=== PATIENT | male | born 1990 | race Caucasian/White ===

== ENCOUNTER 2022-03-16 11:06 | Emergency (ER) | payer OTHER, SELFPAY ==
[2022-03-16 11:44] VITALS: BP 140/79; PULSE 82; RESP 16; TEMP 36.2; O2SAT 98; BMI 33.2
--- NOTE | 2022-03-16 11:52 | DI.RAD.S_ITS ---
PROCEDURE: XR CHEST 2V INDICATIONS: sob TECHNIQUE: 2 views of the chest were acquired. COMPARISON: None. FINDINGS: Surgical changes and devices: None. Lungs and pleura: Lungs are clear. No pleural effusions or pneumothorax. Mediastinum: Mediastinal contours are normal. Heart size is normal. Bones and chest wall: No suspicious bony abnormalities. Soft tissues appear unremarkable. IMPRESSION: No acute pulmonary process. Dictated by: Marcia Borges M.D. on 03/16/2022 at 12:24 Approved by: Marcia Borges M.D. on 03/16/2022 at 12:24
--- NOTE | 2022-03-16 11:53 | DI.RAD.S_ITS ---
PROCEDURE: XR LUMBAR SPINE 2-3V INDICATIONS: pain injury TECHNIQUE: 3 views of the lumbar spine were acquired. COMPARISON: None. FINDINGS: Bones: 5 [id number] vertebrae are present. There is trace retrolisthesis of L5 on S1. Moderate to severe disc and foraminal narrowing are noted at L5-S1. No vertebral body compression fractures. No suspicious bony lesions. Soft tissues: Overlying bowel gas pattern is normal. No suspicious soft tissue calcifications. IMPRESSION: Disc and foraminal narrowing is noted most prominently at L5-S1. Dictated by: Marcia Borges M.D. on 03/16/2022 at 12:25 Approved by: Marcia Borges M.D. on 03/16/2022 at 12:25
--- NOTE | 2022-03-16 11:53 | DI.US.S_ITS ---
PROCEDURE: US SCROTUM INDICATIONS: left swelling pain TECHNIQUE: Real-time scanning was performed of the scrotum and testicles, with image documentation. Color and pulse Doppler interrogation was performed of both testicles. COMPARISON: None. FINDINGS: Right: Testicle is normal in size at 4.7 x 2.3 x 2.8 cm, and homogenous in echotexture. Epididymis is normal in overall size and morphology. No hydrocele or varicoceles. Overlying scrotal skin is normal in thickness. Left: Testicle is normal in size at 4.4 x 2.4 x 3.1 cm, and homogeneous in echotexture. Epididymis demonstrates a small focus of decreased echogenicity measuring 2 x 2 x 3 mm. No hydrocele or varicoceles. Overlying scrotal skin is normal in thickness. Doppler: Color and pulse Doppler demonstrate normal and symmetric arterial flow in both testicles. IMPRESSION: No evidence of torsion at time of exam. Intermittent torsion cannot be excluded. Small left epididymal cyst. Dictated by: Marcia Borges M.D. on 03/16/2022 at 12:42 Approved by: Marcia Borges M.D. on 03/16/2022 at 12:44
--- NOTE | 2022-03-16 13:36 | ED_ITS ---
HPI - Back Pain/Injury <Marycruz Shukla PA-C - Last Filed: 03/16/22 16:03> General Chief Complaint: Back Pain/Injury Stated Complaint: Hurt back lifting weights tuesday- getting worse Time Seen by Provider: 03/16/22 12:56 History of Present Illness HPI Narrative: 31-year-old male with no reported past medical history presents to the ED with 5 days of lower back pain. Patient states that his pain started 5 days ago after doing a session of weightlifting. States that his symptoms felt better after resting it for the next 2 days. However, yesterday he had some physical testing at work ([employer]) when he bent forward and felt like he tweaked his lower back again. Patient endorses bilateral lower back pain. Patient also endorses some numbness in his left testicle, numbness in the left hamstring. He notes that this numbness comes and goes. Patient denies any urinary hesitancy urinary incontinence bowel incontinence. Patient denies tingling, weakness. Related Data Allergies Allergy/AdvReac Type Severity Reaction Status Date / Time Penicillins Allergy Verified 03/16/22 11:54 Sulfa (Sulfonamide Allergy Verified 03/16/22 11:54 Antibiotics) Review of Systems <Marycruz Shukla PA-C - Last Filed: 03/16/22 16:03> Review of Systems ROS Unobtainable: All systems reviewed & are unremarkable except as noted in HPI and below Constitutional Constitutional: Denies chills, Denies fatigue, Denies fever(s), Denies frequent falls, Denies lethargy and Denies weakness Eyes Eyes: Denies change in vision, Denies eye discharge, Denies irritation and Denies loss of vision ENT Ears, Nose, Mouth, and Throat: Denies change in voice, Denies dizziness, Denies neck pain, Denies sore throat and Denies throat swelling Cardiovascular Cardiovascular: Denies chest pain, Denies irregular heart rhythm, Denies lightheadedness, Denies palpitations, Denies dyspnea, Denies dyspnea on exertion and Denies orthopnea Respiratory Respiratory: Denies cough, Denies dyspnea, Denies dyspnea on exertion and Denies wheezing Gastrointestinal Gastrointestinal: Denies abdominal pain, Denies change in bowel habits, Denies diarrhea, Denies nausea and Denies vomiting Genitourinary Genitourinary: Denies hematuria, Denies flank pain, Denies urinary incontinence and Denies urinary urgency Musculoskeletal Musculoskeletal: Reports back pain, Denies muscle weakness, Denies neck pain, Reports numbness and Denies tingling Comments: Left testicular numbness, left hamstring numbness, lower back pain Integumentary/Breasts Skin/Breast: Denies pruritus, Denies erythema, Denies rash and Denies wounds Neurologic Neurologic: Denies behavioral changes, Denies confusion, Denies dizziness, Denies frequent falls, Denies loss of vision, Reports numbness, Denies tingling and Denies weakness Psychiatric Psychiatric: Denies anxiety, Denies behavioral changes, Denies confusion, Denies depression, Denies homicidal ideation and Denies suicidal ideation Endocrine Endocrine: Denies fatigue, Denies flushing and Denies palpitations Hematologic/Lymphatic Hematologic/Lymphatic: Denies easy bruising Allergic/Immunologic Allergic/Immunologic: Denies urticaria, Denies throat swelling and Denies wheezing Exam <Marycruz Shukla PA-C - Last Filed: 03/16/22 16:03> Narrative Exam Narrative: Const General:?cooperative, healthy appearing and comfortable [facility] Head:?normal to inspection Ears:?hearing grossly normal bilaterally Nose:?external nose normal Face and sinus:?normal facial exam and sinuses nontender Mouth:?oral mucosae normal Throat:?posterior oropharynx normal Eyes General:?appearance normal, both eyes and all related structures Neck Neck:?normal visual inspection and no lymphadenopathy noted Resp Effort & Inspection:?normal respiratory effort Auscultation:?clear to auscultation bilaterally Cardio Rate:?regular rate Rhythm:?regular rhythm Musculoskeletal Strength and sensation intact. Full range of motion. Patient is neurovascularly intact. Neuro General:?patient alert, patient awake and patient oriented x3 Initial Vital Signs Initial Vital Signs: Vital Signs Temperature 97.1 F L 03/16/22 11:44 Pulse Rate 82 03/16/22 11:44 Respiratory Rate 16 03/16/22 11:44 Blood Pressure 140/79 03/16/22 11:44 Pulse Oximetry 98 03/16/22 11:44 Oxygen Delivery Method 03/16/22 11:44 <Viv Garcia DO - Last Filed: 03/16/22 19:35> Initial Vital Signs Initial Vital Signs: Vital Signs Temperature 97.1 F L 03/16/22 11:44 Pulse Rate 82 03/16/22 11:44 Respiratory Rate 16 03/16/22 11:44 Blood Pressure 140/79 03/16/22 11:44 Pulse Oximetry 98 03/16/22 11:44 Oxygen Delivery Method 03/16/22 11:44 Course <Marycruz Shukla PA-C - Last Filed: 03/16/22 16:03> Orders Ordered: ED Orders 03/16/22 11:52 Chest [XR chest 2V] Stat 03/16/22 11:53 US scrotum Stat XR lumbar spine 2-3V Stat 03/16/22 13:54 MR lumbar spine wo con Stat Discontinued Medications Cyclobenzaprine HCl (Cyclobenzaprine 10 Mg Tablet) 10 mg PO NOW ONE Stop: 03/16/22 13:54 Last Admin: 03/16/22 14:00 Dose: 10 mg Documented By: VALERIA Ketorolac Tromethamine (Ketorolac 30 Mg/Ml Vial) 30 mg IM NOW ONE Stop: 03/16/22 13:54 Last Admin: 03/16/22 14:00 Dose: 30 mg Documented By: VALERIA Vital Signs Vital signs: Vital Signs - 8 hr 03/16/22 11:44 03/16/22 16:06 Temperature 97.1 F L Pulse Rate 82 66 Respiratory Rate 16 16 Blood Pressure 140/79 136/82 Pulse Oximetry 98 99 Oxygen Delivery Method Room Air Room Air <Viv Garcia DO - Last Filed: 03/16/22 19:35> Orders Ordered: ED Orders 03/16/22 11:52 Chest [XR chest 2V] Stat 03/16/22 11:53 US scrotum Stat XR lumbar spine 2-3V Stat 03/16/22 13:54 MR lumbar spine wo con Stat Discontinued Medications Cyclobenzaprine HCl (Cyclobenzaprine 10 Mg Tablet) 10 mg PO NOW ONE Stop: 03/16/22 13:54 Last Admin: 03/16/22 14:00 Dose: 10 mg Documented By: VALERIA Ketorolac Tromethamine (Ketorolac 30 Mg/Ml Vial) 30 mg IM NOW ONE Stop: 03/16/22 13:54 Last Admin: 03/16/22 14:00 Dose: 30 mg Documented By: VALERIA Vital Signs Vital signs: Vital Signs - 8 hr 03/16/22 11:44 03/16/22 16:06 Temperature 97.1 F L Pulse Rate 82 66 Respiratory Rate 16 16 Blood Pressure 140/79 136/82 Pulse Oximetry 98 99 Oxygen Delivery Method Room Air Room Air MDM - Back Pain/Injury <Marycruz Shukla PA-C - Last Filed: 03/16/22 16:03> Imaging Data Scrotal ultrasound: Radiologist's Impression: PROCEDURE:? US SCROTUM ? INDICATIONS:? left swelling pain ? TECHNIQUE:? Real-time scanning was performed of the scrotum and testicles, with image documentation.? Color and pulse Doppler interrogation was performed of both testicles.? ? COMPARISON:? None. ? FINDINGS:? ? Right:? Testicle is normal in size at 4.7 x 2.3 x 2.8 cm, and homogenous in echotexture.? Epididymis is normal in overall size and morphology.? No hydrocele or varicoceles.? Overlying scrotal skin is normal in thickness.? ? Left:? Testicle is normal in size at 4.4 x 2.4 x 3.1 cm, and homogeneous in echotexture.? Epididymis demonstrates a small focus of decreased echogenicity measuring 2 x 2 x 3 mm.? No hydrocele or varicoceles.? Overlying scrotal skin is normal in thickness.? ? Doppler:? Color and pulse Doppler demonstrate normal and symmetric arterial flow in both testicles.? ? IMPRESSION:? ? No evidence of torsion at time of exam.? Intermittent torsion cannot be excluded. ? Small left epididymal cyst. ? ? Dictated by: Marcia Borges M.D. on 03/16/2022 at 12::42 ? ? Approved by: Marcia Borges M.D. on 03/16/2022 at 12:44? X-ray lumbar spine: Radiologist's Impression: PROCEDURE:? XR LUMBAR SPINE 2-3V ? INDICATIONS:? pain injury ? TECHNIQUE:? 3 views of the lumbar spine were acquired.? ? COMPARISON:? None. ? FINDINGS:? ? Bones:? 5 [id number] vertebrae are present.? There is trace retrolisthesis of L5 on S1.? Moderate to severe disc and foraminal narrowing are noted at L5-S1.? No vertebral body compression fractures.? No suspicious bony lesions.? ? Soft tissues:? Overlying bowel gas pattern is normal.? No suspicious soft tissue calcifications.? ? ? IMPRESSION:? Disc and foraminal narrowing is noted most prominently at L5-S1. ? ? Dictated by: Marcia Borges M.D. on 03/16/2022 at 12:25 ? ? Approved by: Marcia Borges M.D. on 03/16/2022 at 12:25 ? Chest x-ray: Radiologist's Impression: PROCEDURE:? XR CHEST 2V ? INDICATIONS:? sob ? TECHNIQUE:? 2 views of the chest were acquired.? ? COMPARISON:? None. ? FINDINGS:? ? Surgical changes and devices:? None.? ? Lungs and pleura:? Lungs are clear.? No pleural effusions or pneumothorax.? ? Mediastinum:? Mediastinal contours are normal.? Heart size is normal.? ? Bones and chest wall:? No suspicious bony abnormalities.? Soft tissues appear unremarkable.? ? IMPRESSION:? No acute pulmonary process. ? ? Dictated by: Marcia Borges M.D. on 03/16/2022 at 12:24 ? ? Approved by: Marcia Borges M.D. on 03/16/2022 at 12:24 ? MR lumbar spine: Radiologist's Impression: PROCEDURE:? MR LUMBAR SPINE WO CON ? INDICATIONS:? Low back px, L testicular ? hamstring numbness ? TECHNIQUE:? Noncontrast sagittal T1 spin echo and T2 fast echo, sagittal STIR, and T2 fast spin echo through the lumbar spine.? In cases with scoliosis, additional coronal T2 fast spin echo may be performed.? ? COMPARISON:? None. ? FINDINGS:? Image quality:? Excellent.? ? Alignment and Curvature:? Normal lumbar vertebral body height and alignment. ? Bone Marrow:? No suspicious focal marrow signal abnormality or bone marrow edema. ? Spinal Cord:? Conus medullaris terminates at the L1 level.? Visualized cord demonstrates normal signal and size.? ? Regional Soft Tissues:? Prevertebral and paraspinous soft tissues are normal. ? T12-L1:? Normal appearance.? ? L1-L2:? Normal appearance.? ? L2-L3:? Normal appearance.? ? L3-L4:? Normal appearance.? ? L4-L5:? Shallow diffuse disc bulge.? Small central disc protrusion.? No mass effect upon the descending L5 nerve roots.? No neural foraminal narrowing. ? L5-S1:? Shallow diffuse disc bulge without mass effect on the descending S1 nerve roots.? No neural foraminal stenosis. ? ? IMPRESSION:? Minimal lower lumbar spine degenerative changes with no evidence of focal nerve root impingement, spinal canal stenosis, or neural foraminal narrowing.? ? Dictated by: Eliecer Curtis M.D. on 03/16/2022 at 15:48 ? ? Approved by: Eliecer Curtis M.D. on 03/16/2022 at 15:50 ? MDM Narrative Medical decision making narrative: 31-year-old male with no reported past medical history presents to the ED with 5 days of lower back pain. Concern for cauda equina versus musculoskeletal sprain/strain. X-ray of the lumbar spine shows moderate to severe disc and foraminal narrowing at L5-S1, but no vertebral fractures. Scrotal ultrasound shows a epididymal cyst, however no acute findings. Chest x-ray without acute findings. Given lower back pain, x-ray findings, symptom of numbness, will obtain MRI to rule out spinal emergency. Will treat symptoms with Toradol, Flexeril. Will reassess. MRI shows some bulging discs in the L4-L5 and L5-S1 regions, however there is no evidence of focal nerve root impingement, spinal canal stenosis, or neural foraminal narrowing. Patient's symptoms improved with Flexeril and ketorolac. Will discharge home with ED return precautions, PCP follow-up for PT referral. Patient verbalized understanding Discharge Plan Departure Patient Disposition: Home Clinical Impression: Low back pain Instructions: DI for Low Back Pain Activity Restrictions/Additional Instructions: You were evaluated in the ED today for lower back pain. Your MRI shows bulging discs in the L4-L5 and L5-S1 regions, however there is no spinal emergency. Please follow-up with your PCP for further evaluation and a PT referral. Return to the ED if your symptoms worsen. Referrals: Provider,Travis BYRD [Primary Care Provider] - Visit Report Forms: Patient Portal/API <Viv Garcia DO - Last Filed: 03/16/22 19:35> Cosign ED Attending [place] Attestation: I was immediately available in the department for consultation. Documentation has been reviewed. I agree with assessment and plan.
--- NOTE | 2022-03-16 13:54 | DI.MRI.S_ITS ---
PROCEDURE: MR LUMBAR SPINE WO CON INDICATIONS: Low back px, L testicular hamstring numbness TECHNIQUE: Noncontrast sagittal T1 spin echo and T2 fast echo, sagittal STIR, and T2 fast spin echo through the lumbar spine. In cases with scoliosis, additional coronal T2 fast spin echo may be performed. COMPARISON: None. FINDINGS: Image quality: Excellent. Alignment and Curvature: Normal lumbar vertebral body height and alignment. Bone Marrow: No suspicious focal marrow signal abnormality or bone marrow edema. Spinal Cord: Conus medullaris terminates at the L1 level. Visualized cord demonstrates normal signal and size. Regional Soft Tissues: Prevertebral and paraspinous soft tissues are normal. T12-L1: Normal appearance. L1-L2: Normal appearance. L2-L3: Normal appearance. L3-L4: Normal appearance. L4-L5: Shallow diffuse disc bulge. Small central disc protrusion. No mass effect upon the descending L5 nerve roots. No neural foraminal narrowing. L5-S1: Shallow diffuse disc bulge without mass effect on the descending S1 nerve roots. No neural foraminal stenosis. IMPRESSION: Minimal lower lumbar spine degenerative changes with no evidence of focal nerve root impingement, spinal canal stenosis, or neural foraminal narrowing. Dictated by: Eliecer Curtis M.D. on 03/16/2022 at 15:48 Approved by: Eliecer Curtis M.D. on 03/16/2022 at 15:50
[2022-03-16] MEDS: KETOROLAC 30 MG/ML VIAL IM (14:00)
[2022-03-16] MEDS: CYCLOBENZAPRINE 10 MG TABLET PO (14:00)
[2022-03-16 16:06] VITALS: BP 136/82; PULSE 66; RESP 16; O2SAT 99
== END 2022-03-16 16:06 | disposition home or self-care (01) ==
PROVIDERS: Emergency Provider Student in an Organized Health Care Education/Training Program
DX: M54.50 Low back pain, unspecified (principal); R06.02 Shortness of breath; N50.82 Scrotal pain
CPT/HCPCS: 71046; 72100; 72148; 76870; 96372; 99284; J1885